=== PATIENT | male | born 1960 ===

== ENCOUNTER 2023-01-31 06:58 | Day surgery (SDC) | payer BC ==
[~2023-01-31 06:58] MED LIST: Lactated Ringers 1,000 ML IV SCH; Sodium Chloride 0.9% 10 ML Syringe FLUSH PRN; Sodium Chloride 0.9% 10 ML Syringe FLUSH SCH
[2023-01-31] MEDS ORDERED: fentaNYL 100 MCG/2 ML SDV ONE (08:17)
[2023-01-31] MEDS ORDERED: Propofol 200 MG/20 ML SDV ONE (08:17)
[2023-01-31] MEDS ORDERED: Phenylephrine 1% 10 MG/ML SDV ONE (08:57)
[2023-01-31 10:23] VITALS: BP 116/78; PULSE 76
== END 2023-01-31 10:10 | disposition home or self-care (01) ==
LOC: JD.SDS 06:58
PROVIDERS: ATTEND Surgery
DX: Z12.11 Encounter for screening for malignant neoplasm of colon (principal); D12.5 Benign neoplasm of sigmoid colon; K22.89 Other specified disease of esophagus; K29.80 Duodenitis without bleeding; K57.30 Diverticulosis of large intestine without perforation or abscess without bleeding; K31.89 Other diseases of stomach and duodenum; K21.00 Gastro-esophageal reflux disease with esophagitis, without bleeding; K57.32 Diverticulitis of large intestine without perforation or abscess without bleeding; E78.00 Pure hypercholesterolemia, unspecified; Z98.890 Other specified postprocedural states
CPT/HCPCS: 43239; 45385; J2704; J3010; J7120; J2370

== ENCOUNTER 2023-07-29 06:01 | Emergency (ER) | payer BC ==
[2023-07-29] MEDS ORDERED: Sodium Chloride 0.9% 10 ML Syringe FLUSH PRN (06:15)
[2023-07-29] MEDS ORDERED: Sodium Chloride 0.9% 1,000 ML IV SCH (06:15)
[2023-07-29] MEDS ORDERED: Diltiazem 25 MG/5 ML SDV IVPUSH ONE ×2 (06:16→09:25)
[2023-07-29 06:24] LABS: BASOPHILS PERCENT AUTO 0.5 % (0.0-1.0); EOSINOPHILS ABSOLUTE AUTO 0.2 K/mm3 (0.0-0.4); EOSINOPHILS PERCENT AUTO 2.4 % (0.0-6.0); HEMOGLOBIN 15.5 gm/dl (14.0-18.0); IMMATURE GRAN ABSOLUTE AUTO 0.02 K/mm3 (0.00-0.05); IMMATURE GRAN PERCENT AUTO 0.3 % (0.0-0.4); LYMPHOCYTES ABSOLUTE AUTO 2.8 K/mm3 (1.0-4.8); LYMPHOCYTES PERCENT AUTO 37.5 % (24.0-44.0); MEAN CORPUSCULAR HEMOGLOBIN 27.4 pg (28.0-32.0); MEAN PLATELET VOLUME 8.8 fl (9.4-12.4); MONOCYTES ABSOLUTE AUTO 0.5 K/mm3 (0.0-0.8); MONOCYTES PERCENT AUTO 6.7 % (0.0-8.0); NEUTROPHILS ABSOLUTE AUTO 3.9 K/mm3 (1.8-7.7); NEUTROPHILS PERCENT AUTO 52.6 % (41.0-71.0); PLATELET COUNT,PLT 304 K/mm3 (150-400); RED BLOOD CELL COUNT 5.66 M/mm3 (4.52-5.90); WHITE BLOOD CELL COUNT,WBC 7.36 K/mm3 (3.9-11.3)
[2023-07-29] MEDS ORDERED: Diltiazem 125 MG in Sodium Chloride 0.9% 100 ML IV SCH (06:30)
[2023-07-29 06:47] LABS: A/G RATIO 1.1 (1-2); ALBUMIN 3.7 g/dl (3.4-5.0); ANION GAP 11.9 (5-15); BILIRUBIN TOTAL 0.3 mg/dL (0.2-1.0); BUN/CREATININE RATIO 16.7 (14-18); CALCIUM 8.8 mg/dL (8.5-10.1); CREATININE 0.9 mg/dL (0.7-1.3); EST CRCL DRUG DOSING (CG) 107.16 mL/min; MAGNESIUM 2.1 mg/dL (1.8-2.4); POTASSIUM,K 3.9 mEq/L (3.5-5.1); PROTEIN TOTAL,TP 7.1 g/dl (6.4-8.2)
[2023-07-29] MEDS ORDERED: Metoprolol Succinate 50 MG Tab.ER PO ONE (07:40)
[2023-07-29] MEDS ORDERED: Metoprolol Tartrate 5 MG/5 ML SDV IVPUSH ONE (08:02)
[2023-07-29] MEDS ORDERED: Aspirin 81 MG Tab.Chew PO ONE (09:07)
[2023-07-29] MEDS ORDERED: Acetaminophen 325 MG Tab PO PRN (10:13)
[2023-07-29] MEDS ORDERED: Apixaban 2.5 MG Tab PO SCH (10:15)
[2023-07-29] MEDS ORDERED: Apixaban 2.5 MG Tab PO ONE (15:36)
[2023-07-29] MEDS ORDERED: Diltiazem IR 30 MG Tab PO ONE (15:45)
[2023-07-29 18:31] VITALS: BP 127/79; PULSE 89
== END 2023-07-29 17:00 | disposition home or self-care (01) ==
LOC: JD.ED 06:01
DX: I48.91 Unspecified atrial fibrillation (principal)
CPT/HCPCS: 36415; 80053; 83735; 84484; 85025; 93005; A9270; J3490; J7030